=== PATIENT | male | born 1945 | race Caucasian/White ===

== ENCOUNTER 2020-01-30 22:11 | Outpatient (REF) | payer MEDICARE, BC, SELFPAY ==
[2020-01-30 22:35] LABS: Abs Immature Grans 0.02 10^3/uL (0.0-0.06); Absolute Basophil Count 0.02 10^3/uL (0.0-0.2); Absolute Eosinophil Count 0.01 10^3/uL (0.0-0.7); Absolute Lymphocyte Count 1.29 10^3/uL (1.2-3.4); Absolute Monocyte Count 0.54 10^3/uL (0.1-0.8); Absolute Neutrophil Count 2.71 10^3/uL (1.2-6.7); Basophils % 0.4; Eosinophils % 0.2; HCT 46.2 % (40.0-50.0); HGB 16.5 g/dL (13.5-17.5); Immature Grans % 0.4; Lymphocytes % 28.1; MCH 33.7 pg (27.0-33.0); MCHC 35.7 % (32.0-36.0); MCV 94.3 fL (80-95); MPV 11.6 fL (8.0-11.0); Monocytes % 11.8; Neutrophils % 59.1; Nucleated RBC 0 %; Platelet Count 135 10^3/uL (130-400); RDW 11.3 % (11.8-14.1); RDW-SD 38.8 fL; WBC 4.59 10^3/uL (4.4-10.8)
[2020-01-30 23:08] LABS: Hemoglobin A1C 5.2 % (<5.7)
[2020-01-30 23:12] LABS: ALT 32 U/L (16-63); AST 23 U/L (15-37); Albumin 3.9 g/dL (3.4-5.0); Alkaline Phosphatase 92 U/L (46-116); Anion Gap 7.5 mmol/L (3-11); BUN 16 mg/dL (7-18); Bilirubin, Total 0.8 mg/dL (0.2-1.0); CO2 29.5 mmol/L (21.0-32.0); CREATININE 1.13 mg/dL (0.70-1.30); Calcium 8.6 mg/dL (8.5-10.1); Chloride 104 mmol/L (98-107); Glucose 102 mg/dL (74-106); Potassium 3.8 mmol/L (3.5-5.1); Sodium 141 mmol/L (136-145); TSH (W/Ref FT4) 2.88 uIU/mL (0.36-3.74); Total Protein 6.7 g/dL (6.4-8.2); Vitamin B12 267 pg/mL (193-986)
[2020-02-01 09:41] LABS: HIV-1/2 Ag & Ab Screen Negative (Negative)
[2020-02-01 09:57] LABS: Hepatitis C Ab w Rflx HCV PCR Negative (Negative)
[2020-02-06 12:43] LABS: Methylmalonic Acid 0.36 nmol/mL (<=0.40)
== END 2020-01-30 22:31 ==
LOC: NCHCN 22:11
PROVIDERS: Visit Provider Nurse Practitioner Family
DX: R53.83 Other fatigue (principal); R41.9 Unspecified symptoms and signs involving cognitive functions and awareness; Z82.49 Family history of ischemic heart disease and other diseases of the circulatory system; Z13.1 Encounter for screening for diabetes mellitus; Z11.4 Encounter for screening for human immunodeficiency virus [HIV]; Z11.59 Encounter for screening for other viral diseases; Z51.81 Encounter for therapeutic drug level monitoring
CPT/HCPCS: 80053; 80186; 86803; 87389; 82607; 83036; 84425; 84443; 85025

== ENCOUNTER 2021-03-10 08:00 | Outpatient (REF) | payer MEDICARE, BC, SELFPAY ==
[2021-03-10 17:45] LABS: Abs Immature Grans 0.02 10^3/uL (0.0-0.06); Absolute Basophil Count 0.03 10^3/uL (0.0-0.2); Absolute Eosinophil Count 0.14 10^3/uL (0.0-0.7); Absolute Lymphocyte Count 1.74 10^3/uL (1.2-3.4); Absolute Monocyte Count 0.62 10^3/uL (0.1-0.8); Absolute Neutrophil Count 3.24 10^3/uL (1.2-6.7); Basophils % 0.5; Eosinophils % 2.4; HCT 50.5 % (40.0-50.0); HGB 17.3 g/dL (13.5-17.5); Immature Grans % 0.3; Lymphocytes % 30.1; MCH 33.5 pg (27.0-33.0); MCHC 34.3 % (32.0-36.0); MCV 97.7 fL (80-95); MPV 11.2 fL (8.0-11.0); Monocytes % 10.7; Nucleated RBC 0 %; Platelet Count 137 10^3/uL (130-400); RBC 5.17 10^6/uL (4.36-5.78); RDW 11.4 % (11.8-14.1); RDW-SD 41.2 fL; WBC 5.79 10^3/uL (4.4-10.8)
[2021-03-10 18:04] LABS: ALT 20 U/L (16-63); AST 21 U/L (15-37); Albumin 4.3 g/dL (3.4-5.0); Alkaline Phosphatase 87 U/L (46-116); Anion Gap 7.2 mmol/L (3-11); BUN 15 mg/dL (7-18); Bilirubin, Total 0.9 mg/dL (0.2-1.0); CO2 30.8 mmol/L (21.0-32.0); CREATININE 1.1 mg/dL (0.70-1.30); Chloride 104 mmol/L (98-107); Glucose 76 mg/dL (74-106); Sodium 142 mmol/L (136-145); TSH (W/Ref FT4) 1.83 uIU/mL (0.36-3.74); Total Protein 7.2 g/dL (6.4-8.2)
[2021-03-12 12:07] LABS: Lyme Ab w Rflx to Lyme Confirm Negative (Negative)
== END 2021-03-10 08:01 | disposition home or self-care (01) ==
LOC: NCHCN 08:00
PROVIDERS: Visit Provider Internal Medicine
DX: R53.83 Other fatigue (principal); Z01.84 Encounter for antibody response examination
CPT/HCPCS: 80053; 84443; 85025; 86618

== ENCOUNTER 2021-07-15 15:25 | Outpatient (REF) | payer MEDICARE, BC, SELFPAY ==
[2021-07-15 14:23] LABS: Calculated LDL 124 mg/dL (<100); Cholesterol 223 mg/dL (<200); HDL Cholesterol 87 mg/dL (40-60); Triglyceride 63 mg/dL (<150)
== END 2021-07-15 15:26 | disposition home or self-care (01) ==
LOC: NCHCN 15:25
PROVIDERS: Visit Provider Nurse Practitioner Family
DX: E78.5 Hyperlipidemia, unspecified (principal)
CPT/HCPCS: 80061

== ENCOUNTER 2022-01-29 10:13 | Outpatient (REF) | payer MEDICARE, BC, SELFPAY ==
[2022-01-29 14:46] LABS: HCT 45.8 % (40.0-50.0); HGB 16.1 g/dL (13.5-17.5); MCH 33.8 pg (27.0-33.0); MCHC 35.2 % (32.0-36.0); MCV 96 fL (80-95); MPV 10.6 fL (8.0-11.0); Platelet Count 137 10^3/uL (130-400); RBC 4.76 10^6/uL (4.36-5.78); RDW 11.5 % (11.8-14.1); RDW-SD 40.6 fL; WBC 4.63 10^3/uL (4.4-10.8)
[2022-01-29 15:05] LABS: Hemoglobin A1C 5.3 % (<5.7)
[2022-01-29 15:08] LABS: ALT 17 U/L (16-63); AST 21 U/L (15-37); Albumin 3.7 g/dL (3.4-5.0); Alkaline Phosphatase 74 U/L (46-116); Anion Gap 6.5 mmol/L (3-11); BUN 13 mg/dL (7-18); Bilirubin, Total 0.8 mg/dL (0.2-1.0); CO2 30.5 mmol/L (21.0-32.0); CREATININE 1.1 mg/dL (0.70-1.30); Calcium 8.7 mg/dL (8.5-10.1); Chloride 107 mmol/L (98-107); Estimated GFR 70.44 (mL/min/1.73m2); Ferritin 112 ng/mL (26-388); Glucose 119 mg/dL (74-106); Potassium 3.9 mmol/L (3.5-5.1); Sodium 144 mmol/L (136-145); TSH 1.12 uIU/mL (0.36-3.74); Total Protein 6.6 g/dL (6.4-8.2)
[2022-01-29 22:55] LABS: PSA, Screening 1.3 ng/mL (<=6.5)
[2022-01-30 09:48] LABS: HBs Antibody, Quant 4.9 mIU/mL (See Note); Hepatitis B Surface Ab Negative (See Note)
[2022-01-30 10:03] LABS: HIV-1/2 Ag & Ab Screen Negative (Negative)
[2022-01-30 10:31] LABS: Hepatitis C Ab w Rflx HCV PCR Negative (Negative)
[2022-01-30 10:34] LABS: Hep A Total Ab w Rflx IgM Negative (Negative)
== END 2022-01-29 10:14 | disposition home or self-care (01) ==
LOC: NCHCN 10:13
PROVIDERS: Visit Provider Nurse Practitioner Family
DX: R61 Generalized hyperhidrosis (principal); Z11.59 Encounter for screening for other viral diseases; Z00.00 Encounter for general adult medical examination without abnormal findings; D69.6 Thrombocytopenia, unspecified; Z12.5 Encounter for screening for malignant neoplasm of prostate; Z80.42 Family history of malignant neoplasm of prostate; Z11.4 Encounter for screening for human immunodeficiency virus [HIV]; Z72.51 High risk heterosexual behavior
CPT/HCPCS: 80053; 84153; 85027; 86706; 86709; 86803; 87389; 82728; 83036; 84443

== ENCOUNTER 2022-10-27 10:12 | Outpatient (REF) | payer MEDICARE, BC, SELFPAY ==
[2022-10-27 16:01] LABS: Absolute Basophil Count 0.02 10^3/uL (0.0-0.2); Absolute Lymphocyte Count 1.46 10^3/uL (1.2-3.4); Absolute Monocyte Count 0.44 10^3/uL (0.1-0.8); Absolute Neutrophil Count 2.54 10^3/uL (1.2-6.7); Basophils % 0.4; HCT 46.5 % (40.0-50.0); HGB 16.2 g/dL (13.5-17.5); Lymphocytes % 32.7; MCH 32.7 pg (27.0-33.0); MCHC 34.8 % (32.0-36.0); MCV 94 fL (80-95); Monocytes % 9.9; Platelet Count 132 10^3/uL (130-400); RBC 4.95 10^6/uL (4.36-5.78); RDW 11.6 % (11.8-14.1); RDW-SD 40.1 fL; WBC 4.46 10^3/uL (4.4-10.8)
[2022-10-27 16:47] LABS: Anion Gap 5.4 mmol/L (3-11); BUN 15 mg/dL (7-18); CO2 31.6 mmol/L (21.0-32.0); CREATININE 1.1 mg/dL (0.70-1.30); Calcium 9.6 mg/dL (8.5-10.1); Chloride 103 mmol/L (98-107); Estimated GFR 70.01 (mL/min/1.73m2); Folate 16.7 ng/mL (8.6-20.0); Glucose 92 mg/dL (74-106); Potassium 3.8 mmol/L (3.5-5.1); Sodium 140 mmol/L (136-145); Vitamin B12 247 pg/mL (193-986)
== END 2022-10-27 10:13 | disposition home or self-care (01) ==
LOC: NCHCN 10:12
PROVIDERS: Visit Provider Nurse Practitioner Family
DX: D69.6 Thrombocytopenia, unspecified (principal); R79.1 Abnormal coagulation profile; D64.9 Anemia, unspecified; R41.9 Unspecified symptoms and signs involving cognitive functions and awareness; I10 Essential (primary) hypertension
CPT/HCPCS: 80048; 82607; 82746; 85025

== ENCOUNTER 2023-04-27 13:04 | Outpatient (REF) | payer MEDICARE, BC, SELFPAY ==
[2023-04-27 15:01] LABS: Abs Immature Grans 0.02 10^3/uL (0.0-0.06); Absolute Basophil Count 0.01 10^3/uL (0.0-0.2); Absolute Lymphocyte Count 0.62 10^3/uL (1.2-3.4); Absolute Monocyte Count 0.43 10^3/uL (0.1-0.8); Basophils % 0.2; HCT 47.2 % (40.0-50.0); HGB 16.4 g/dL (13.5-17.5); Immature Grans % 0.3; Lymphocytes % 10.7; MCH 33.1 pg (27.0-33.0); MCHC 34.7 % (32.0-36.0); MCV 95 fL (80-95); MPV 10.2 fL (8.0-11.0); Monocytes % 7.4; Neutrophils % 81.4; Platelet Count 115 10^3/uL (130-400); RBC 4.96 10^6/uL (4.36-5.78); RDW 11.8 % (11.8-14.1); RDW-SD 40.7 fL; WBC 5.78 10^3/uL (4.4-10.8)
[2023-04-27 15:36] LABS: ALT 12 U/L (16-63); AST 25 U/L (15-37); Albumin 3.6 g/dL (3.4-5.0); Alkaline Phosphatase 101 U/L (46-116); Anion Gap 8.4 mmol/L (3-11); BUN 18 mg/dL (7-18); Bilirubin, Total 1.3 mg/dL (0.2-1.0); CO2 27.6 mmol/L (21.0-32.0); CREATININE 1.3 mg/dL (0.70-1.30); Calcium 8.6 mg/dL (8.5-10.1); Chloride 106 mmol/L (98-107); Estimated GFR 57.29 (mL/min/1.73m2); Glucose 107 mg/dL (74-106); Potassium 3.8 mmol/L (3.5-5.1); Sodium 142 mmol/L (136-145); Total Protein 6.6 g/dL (6.4-8.2)
== END 2023-04-27 13:05 | disposition home or self-care (01) ==
LOC: NCHCN 13:04
PROVIDERS: PCP Nurse Practitioner Family; Visit Provider Nurse Practitioner Family
DX: R50.9 Fever, unspecified (principal)
CPT/HCPCS: 80053; 85025

== ENCOUNTER 2024-09-05 20:16 | Outpatient (REF) | payer MEDICARE, BC, SELFPAY ==
[2024-09-05 21:26] LABS: HCT 46.9 % (40.0-50.0); HGB 16.3 g/dL (13.5-17.5); MCH 33.3 pg (27.0-33.0); MCHC 34.8 % (32.0-36.0); MCV 96 fL (80-95); MPV 10.4 fL (8.0-11.0); Platelet Count 163 10^3/uL (130-400); RBC 4.89 10^6/uL (4.36-5.78); RDW 11.8 % (11.8-14.1); RDW-SD 41.3 fL; WBC 7.05 10^3/uL (4.4-10.8)
[2024-09-05 22:11] LABS: ALT 23 U/L (16-63); AST 27 U/L (15-37); Albumin 3.9 g/dL (3.4-5.0); Alkaline Phosphatase 81 U/L (46-116); Anion Gap 6.3 mmol/L (3-11); BUN 14 mg/dL (7-18); Bilirubin, Total 0.4 mg/dL (0.2-1.0); CO2 30.7 mmol/L (21.0-32.0); Calcium 9.3 mg/dL (8.5-10.1); Chloride 105 mmol/L (98-107); Estimated GFR 69.14 (mL/min/1.73m2); Glucose 109 mg/dL (74-106); Potassium 4.5 mmol/L (3.5-5.1); Sodium 142 mmol/L (136-145); TSH (W/Ref FT4) 2.14 uIU/mL (0.36-3.74); Total Protein 6.9 g/dL (6.4-8.2); Vitamin B12 446 pg/mL (193-986)
[2024-09-05 22:14] LABS: Folate > 20.0 ng/mL (8.6-20.0)
== END 2024-09-05 20:17 | disposition home or self-care (01) ==
LOC: NCHCN 20:16
PROVIDERS: PCP Nurse Practitioner Family; Visit Provider Nurse Practitioner Family
DX: G20.A1 Parkinson's disease without dyskinesia, without mention of fluctuations (principal)
CPT/HCPCS: 80053; 85027; 82607; 82746; 84443